=== PATIENT | male | born 1995 | race Two or more races ===

== ENCOUNTER 2018-05-23 18:17 | Emergency (ER) | payer SELFPAY ==
[2018-05-23] MEDS ORDERED: CARBAMAZEPINE 200 MG TABLET PO ONE (18:54)
[2018-05-23] MEDS ORDERED: HYDROXYZINE PAMOATE 50 MG CAPSULE PO ONE (18:54)
[2018-05-23] MEDS ORDERED: OLANZAPINE 5 MG TABLET PO ONE (18:54)
--- NOTE | 2018-05-23 18:54 | ER Document Report ---
ED Medical Screen (RME) - General Chief Complaint: Psych Problem Stated Complaint: PSYCH Time Seen by Provider: 05/23/18 18:46 Mode of Arrival: Ambulatory Information source: Patient Notes: This is a 22-year-old gentleman with a history of bipolar affective disorder and PTSD has been off his medicines and is new to the area (previously from [place]). Patient presents to the emergency room with not being able to sleep, nausea, having flashbacks. He states he took some marijuana and its made him feel more agitated. TRAVEL OUTSIDE OF THE [place] IN LAST 30 DAYS: No - Related Data Allergies/Adverse Reactions: No Known Allergies Allergy (Unverified 05/23/18 18:18) Past Medical History - Social History Chew tobacco use (# tins/day): No Frequency of alcohol use: None Drug Abuse: Marijuana Renal/ Medical History: Denies: Hx Peritoneal Dialysis Physical Exam - Vital signs Vitals: Temp Pulse Resp BP Pulse Ox 97.7 F 95 17 125/72 99 05/23/18 18:24 05/23/18 18:24 05/23/18 18:24 05/23/18 18:24 05/23/18 18:24 Course - Vital Signs Vital signs: Temp Pulse Resp BP Pulse Ox 97.7 F 95 17 125/72 99 05/23/18 18:24 05/23/18 18:24 05/23/18 18:24 05/23/18 18:24 05/23/18 18:24
[2018-05-23 19:21] LABS: ABSOLUTE EOSINOPHILS # (AUTO) 0.3 10^3/uL (0.0-0.6); ABSOLUTE LYMPHOCYTES (AUTO) 2.2 10^3/uL (0.5-4.7); ABSOLUTE MONOCYTES (AUTO) 0.8 10^3/uL (0.1-1.4); BASOPHILS % (AUTO) 0.4 % (0-2); EOSINOPHILS % (AUTO) 2.3 % (0-6); HEMATOCRIT 40.7 % (37.9-51.0); HEMOGLOBIN 13.4 g/dL (13.5-17.0); LYMPHOCYTES % (AUTO) 19.8 % (13-45); MEAN CORPUSCULAR HEMOGLOBIN 29.6 pg (27.0-33.4); MEAN CORPUSCULAR VOLUME 90 fl (80-97); MONOCYTES % (AUTO) 6.9 % (3-13); PLATELET COUNT 343 10^3/uL (150-450); RED BLOOD COUNT 4.55 10^6/uL (4.35-5.55); RED CELL DISTRIBUTION WIDTH 13.2 % (11.5-14.0); SEGMENTED NEUTROPHILS % (AUTO) 70.6 % (42-78); TOTAL CELLS COUNTED % (AUTO) 100 %; WHITE BLOOD COUNT 11.3 10^3/uL (4.0-10.5)
[2018-05-23 19:29] LABS: APPEARANCE,URINE SLIGHTLY-CLOUDY; BILIRUBIN,URINE NEGATIVE (NEGATIVE); GLUCOSE, URINE NEGATIVE (NEGATIVE); KETONES,URINE NEGATIVE (NEGATIVE); LEUKOCYTE ESTERASE,URINE NEGATIVE (NEGATIVE); NITRITE,URINE NEGATIVE (NEGATIVE); PROTEIN,URINE NEGATIVE (NEGATIVE); URINE SPECIFIC GRAVITY 1.029
[2018-05-23 19:30] LABS: COLOR,URINE YELLOW
[2018-05-23 19:44] LABS: ALANINE AMINOTRANSFERASE 43 U/L (21-72); ALBUMIN 4.8 g/dL (3.5-5.0); ALKALINE PHOSPHATASE 77 U/L (38-126); ANION GAP 10 (5-19); ASPARTATE AMINO TRANSFERASE 91 U/L (17-59); BILIRUBIN,DIRECT 0.2 mg/dL (0.0-0.4); BILIRUBIN,TOTAL 0.3 mg/dL (0.2-1.3); BLOOD UREA NITROGEN 24 mg/dL (7-20); CALCIUM 9.9 mg/dL (8.4-10.2); CARBON DIOXIDE 32 mmol/L (22-30); CHLORIDE 99 mmol/L (98-107); GLUCOSE 86 mg/dL (75-110); POTASSIUM 4.6 mmol/L (3.6-5.0); SODIUM 141.4 mmol/L (137-145); TOTAL PROTEIN 7.6 g/dL (6.3-8.2)
[2018-05-23 19:45] LABS: ACETAMINOPHEN < 10 ug/mL (10-30); ALCOHOL < 10 mg/dL (NONE DETECTED); SALICYLATE < 1.0 mg/dL (2.0-20.0)
[2018-05-23 19:45] LABS: URINE BARBITURATES SCREEN NEGATIVE; URINE BENZODIAZEPINES SCREEN NEGATIVE; URINE COCAINE SCREEN NEGATIVE; URINE MARIJUANA (THC) SCREEN UNCONFIRMED POSITIVE; URINE METHADONE SCREEN NEGATIVE; URINE PHENCYCLIDINE SCREEN NEGATIVE
--- NOTE | 2018-05-23 19:50 | ER Document Report ---
Addendum entered and electronically signed by MENDEL MTZ MD 05/24/18 09:49: Discharge - Discharge Clinical Impression: Bipolar I disorder with keila, Amphetamine abuse Condition: Stable Disposition: HOME, SELF-CARE Additional Instructions: You have been evaluated by both medical and behavioral health teams and have been deemed appropriate for discharge. You are encouraged to refrain from using amphetamines as this can increase your symptoms of bipolar. You have been provided a resource list and local providers and mobile crisis contact information. Bipolar Disorder Bipolar disorder is also called manic-depressive disorder. Depression alternates with brain hyperactivity called keila. Each phase lasts from several days to a few weeks. We don't know exactly what causes bipolar disorder, but it's treatable. During the "manic phase," you may feel elated and energetic. You may have racing thoughts, rapid speech, increased activity, and grandiose ideas. During this time, you may not realize how poor your judgement is. Inappropriate spending, drug abuse, excessive alcohol use, marriage problems, and irresponsible sexual behavior are common during the manic phase. During the "depressive phase," you might feel depressed, guilty, worthless, fatigued, and unable to concentrate. You might have thoughts of suicide. Good treatments are available for bipolar disorder. [place] is a classic drug for bipolar disorder, and is still often useful. If the manic phase is very mild, an antidepressant alone can be prescribed. If the manic phase is very severe, an antipsychotic medicine (such as Haldol) may be needed. The treatment must be matched to your symptoms, so it's important to work closely with your psychiatric care provider. Contact your physician, the hospital emergency center, crisis line, or your counsellor if you are losing control or having self-destructive thoughts. AMPHETAMINE / METHAMPHETAMINE ABUSE: Amphetamines are addicting stimulants. Amphetamines overstimulate the nervous system and give a false feeling of power and mastery. These drugs may be obtained as prescription pills for weight loss, narcolepsy, or attention-deficit disorder. More often they're bought as an illegal street drug, methamphetamine (crank, crystal, speed). Using amphetamines repeatedly can lead to serious medical problems including malnutrition, severe depression, and paranoia. It can take increasing amounts to feel good. Eventually, there will be a "burn out." When you go off amphetamines there is a period of depression that may last for weeks or even months. High doses of amphetamines can cause seizures, confusion, hallucinations, delusions, high blood pressure, muscle damage, heart damage, or sudden . Many times these deadly complications occur even with "normal" doses. Injection of amphetamines is risky for developing abscesses, endocarditis (heart infection), pneumonia, and AIDS. Withdrawal from amphetamines often causes anxiety, depression, and drug cravings. Some users become paranoid and psychotic. There may be cramps, nausea, and vomiting. Many treatment programs are available, but you must make the decision to quit. Medication can be prescribed to control the symptoms of amphetamine toxicity (beta blockers or benzodiazepines). Withdrawal symptoms may require tranquilizers. FOLLOW-UP CARE: If you experience worsening or a significant change in your symptoms, notify the physician immediately or return to the Emergency Department at any time for re- evaluation. Referrals: [facility] [Outside] - Follow up in 3-5 days [facility] [Outside] - Follow up as needed Addendum entered and electronically signed by EN SHANNON LCSWA 05/24/18 09:25: Discharge - Discharge Clinical Impression: Bipolar I disorder with keila, Amphetamine abuse Condition: Stable Disposition: HOME, SELF-CARE Additional Instructions: You have been evaluated by both medical and behavioral health teams and have been deemed appropriate for discharge. You are encouraged to refrain from using amphetamines as this can increase your symptoms of bipolar. You have been provided a resource list and local providers and mobile crisis contact information. Bipolar Disorder Bipolar disorder is also called manic-depressive disorder. Depression alternates with brain hyperactivity called keila. Each phase lasts from several days to a few weeks. We don't know exactly what causes bipolar disorder, but it's treatable. During the "manic phase," you may feel elated and energetic. You may have racing thoughts, rapid speech, increased activity, and grandiose ideas. During this time, you may not realize how poor your judgement is. Inappropriate spending, drug abuse, excessive alcohol use, marriage problems, and irresponsible sexual behavior are common during the manic phase. During the "depressive phase," you might feel depressed, guilty, worthless, fatigued, and unable to concentrate. You might have thoughts of suicide. Good treatments are available for bipolar disorder. [place] is a classic d rug for bipolar disorder, and is still often useful. If the manic phase is very mild, an antidepressant alone can be prescribed. If the manic phase is very severe, an antipsychotic medicine (such as Haldol) may be needed. The treatment must be matched to your symptoms, so it's important to work closely with your psychiatric care provider. Contact your physician, the hospital emergency center, crisis line, or your counsellor if you are losing control or having self-destructive thoughts. AMPHETAMINE / METHAMPHETAMINE ABUSE: Amphetamines are addicting stimulants. Amphetamines overstimulate the nervous system and give a false feeling of power and mastery. These drugs may be obtained as prescription pills for weight loss, narcolepsy, or attention-deficit disorder. More often they're bought as an illegal street drug, methamphetamine (crank, crystal, speed). Using amphetamines repeatedly can lead to serious medical problems including malnutrition, severe depression, and paranoia. It can take increasing amounts to feel good. Eventually, there will be a "burn out." When you go off amphetamines there is a period of depression that may last for weeks or even months. High doses of amphetamines can cause seizures, confusion, hallucinations, delusions, high blood pressure, muscle damage, heart damage, or sudden . Many times these deadly complications occur even with "normal" doses. Injection of amphetamines is risky for developing abscesses, endocarditis (heart infection), pneumonia, and AIDS. Withdrawal from amphetamines often causes anxiety, depression, and drug cravings. Some users become paranoid and psychotic. There may be cramps, nausea, and vomiting. Many treatment programs are available, but you must make the decision to quit. Medication can be prescribed to control the symptoms of amphetamine toxicity (beta blockers or benzodiazepines). Withdrawal symptoms may require tranquilizers. FOLLOW-UP CARE: If you experience worsening or a significant change in your symptoms, notify the physician immediately or return to the Emergency Department at any time for re- evaluation. Referrals: [facility] [Outside] - Follow up as needed [facility] [Outside] - Follow up in 3-5 days Original Note: ED General - General Chief Complaint: Psych Problem Stated Complaint: PSYCH Time Seen by Provider: 05/23/18 18:46 Mode of Arrival: Ambulatory TRAVEL OUTSIDE OF THE [place] IN LAST 30 DAYS: No - HPI Notes: Patient presents to the emergency department for evaluation. He states "I think I am manic." He has a history of bipolar affective disorder as well as PTSD. He is new to the area. He is been off his medications for over a month. He states he has been told by his roommates that he is having night terrors. He states he has been sleepwalking, screaming and going back to sleep. He does not have any recollection of these episodes. He denies any suicidal or homicidal ideation. He denies any known auditory hallucinations at this time. He has been psychiatrically hospitalized in the past was for suicidality. - Related Data Allergies/Adverse Reactions: No Known Allergies Allergy (Unverified 05/23/18 18:18) Past Medical History - General Information source: Patient - Social History Smoking Status: Current Every Day Smoker Chew tobacco use (# tins/day): No Frequency of alcohol use: None Drug Abuse: Marijuana Family History: Reviewed & Not Pertinent Patient has suicidal ideation: No Patient has homicidal ideation: No Renal/ Medical History: Denies: Hx Peritoneal Dialysis Review of Systems - Review of Systems Constitutional: No symptoms reported EENT: No symptoms reported Cardiovascular: No symptoms reported Respiratory: No symptoms reported Gastrointestinal: No symptoms reported Musculoskeletal: No symptoms reported Skin: No symptoms reported Hematologic/Lymphatic: No symptoms reported Neurological/Psychological: See HPI Physical Exam - Vital signs Vitals: Temp Pulse Resp BP Pulse Ox 97.7 F 95 17 125/72 99 05/23/18 18:24 05/23/18 18:24 05/23/18 18:24 05/23/18 18:24 05/23/18 18:24 Interpretation: Normal - Notes Notes: Vital signs reviewed, please refer to chart. Patient is normocephalic, atraumatic. Pupils equal round, reactive to light. Neck is supple without meningismus. Heart is regular rate and rhythm. Lungs are clear to auscultation bilaterally. Abdomen is soft, nontender, normoactive bowel sounds throughout. Extremities without cyanosis, clubbing, edema. Peripheral pulses are equal. Skin is warm and dry. Patient is awake, alert, neurological exam is nonfocal. Patient is agitated, fidgety. He is intermittently scratching at his extremities, avoids eye contact. Mild stream of consciousness thought process. Pressured speech. Course - Re-evaluation Re-evalutation: 05/23/18 19:50 Patient presents to the emergency department for evaluation. Medications as ordered through triage. Laboratory investigations reviewed and found to be largely unremarkable. Patient does agree that psychiatric evaluation and treatment would be most appropriate at this time. He is medically cleared and will be seen by psych tomorrow. 05/23/18 21:37 Patient remains mildly agitated. Ativan ordered. - Vital Signs Vital signs: Temp Pulse Resp BP Pulse Ox 97.7 F 95 17 125/72 99 05/23/18 18:24 05/23/18 18:24 05/23/18 18:24 05/23/18 18:24 05/23/18 18:24 - Laboratory Result Diagrams: 05/23/18 19:02 05/23/18 19:02 Laboratory results interpreted by me: 05/23/18 05/23/18 05/23/18 18:54 19:02 19:02 WBC 11.3 H Hgb 13.4 L Carbon Dioxide 32 H BUN 24 H AST 91 H Urine Urobilinogen 2.0 H Urine Ascorbic Acid 40 H Salicylates < 1.0 L Acetaminophen < 10 L Discharge - Discharge Clinical Impression: Bipolar I disorder with keila Disposition: PSYCH HOSP/UNIT
--- NOTE | 2018-05-23 21:20 | EKG REPORT ---
SEVERITY:- NORMAL ECG - SINUS RHYTHM ST ELEV, PROBABLE NORMAL EARLY REPOL PATTERN : Confirmed by: Samantha Rios MD 23-May-2018 21:20:04
[2018-05-23] MEDS ORDERED: LORAZEPAM INJ 2 MG/1 ML VIAL IM ONE (21:36)
--- NOTE | 2018-05-24 09:31 | ER Document Report ---
Doctor's Note Notes: 05/24/18 09:31 22-year-old male with past medical history of bipolar disorder who presents thinking that he has possibly "manic". He denies any auditory or visual hallucinations, suicidal or homicidal ideations. He has been out of his medications for 1 month. Patient supposedly has been "sleepwalking" according to his roommates at home. Patient has no recollection of these events. Labs and vital signs as recorded. 05/24/18 09:47 Psychology/psychiatry team is seen and evaluated the patient. They do not believe that the patient meets IVC criteria at this time. They were hesitant to prescribe the patient medications given that they have had no contact with the patient previously and he has amphetamines in his urine analysis. Patient denies taking any medications other than smoking marijuana. Patient denies any auditory or visual hallucinations. He denies any suicidal homicidal ideations. They would like to start the patient initially by providing outpatient resources that the patient will access for further evaluation. Patient is comfortable with this plan.
[2018-05-24 10:16] VITALS: BP 111/62
--- NOTE | 2018-05-24 10:22 | PSYCHOLOGICAL NOTE ---
Psych Note - Psych Note Date seen by psych provider: 05/24/18 Time seen by psych provider: 07:30 Psych Note: Reason for Consult: manic This is a 22-year-old gentleman with a history of bipolar 1 disorder and PTSD has been off his medicines and is new to the area (previously from [place]). Patient presents to the emergency room with not being able to sleep, nausea, having flashbacks. He states he took some marijuana and its made him feel more agitated. Patient discloses he used to be prescribed Tegretol, Zyprexa and vitamin B complex. He confirms that he is not with an outpatient mental provider currently. Patient reports he was unaware he had any amph etamines in his system. Clinician conducted psychoeducation on probability of increased symptoms of "keila" and/or agitation because of the amphetamine. Patient is alert and orientated to person, place, time and circumstance. Mood is euthymic with congruent affect. Patient denies suicidal homicidal ideations. Delusions are absent behaviors congruent with an intact reality based presentation i.e. organized linear thought process. Eye contact is fair. Conversational speech is within normal rate, tone and prosody. Clinician notes notes psychomotor agitation is noted currently but was observed by [facility] staff last night. Attention and concentration were good. Insight, judgment, impulse control is fair. No medication recommendations at this time Bipolar 1 disorder per history provided by patient PTSD per history provided by patient Impression\\plan: Patient is cleared from acute psychiatric services. Patient does not meet IVC criteria per MD GS 122C. Patient reports being off me dications for approximately 1 month and is not been able to establish an outpatient mental provider. Patient did just recently moved from [place] to the local area. Patient reports that he smokes marijuana in the hopes that he would be calmed however reports increased agitation. [facility] staff observed manic-like behavior upon his arrival. Patient is no longer demonstrating any behaviors indicating he is manic or under the influence. Patient is noted to be positive for amphetamines and currently patient denies having any prescriptions for amphetamines. His problems with patient's marijuana was laced which increased his agitation and contributed to his presentation upon arrival. Patient is highly encouraged to abstain from amphetamines as this can increase symptoms of his mental health diagnoses. Patient was provided local resource list of area providers including mobile crisis contact information. Dr. Sharpe was consulted and the care management this patient; attending physicians in agreement with recommendations and disposition.
== END 2018-05-24 10:28 | disposition home or self-care (01) ==
LOC: ER 18:17
DX: F31.9 Bipolar disorder, unspecified (principal); T42.1X6A Underdosing of iminostilbenes, initial encounter; T43.596A Underdosing of other antipsychotics and neuroleptics, initial encounter; Z91.128 Patient's intentional underdosing of medication regimen for other reason; F15.10 Other stimulant abuse, uncomplicated; F12.10 Cannabis abuse, uncomplicated; F17.200 Nicotine dependence, unspecified, uncomplicated; F43.10 Post-traumatic stress disorder, unspecified
CPT/HCPCS: 93005; 99285; 96372; 36415; 80307 ×4; 85025; 80053; 81001; 93010; J2060

== ENCOUNTER 2018-05-27 16:35 | Emergency (ER) | payer SELFPAY ==
--- NOTE | 2018-05-27 17:16 | ER Document Report ---
ED Medical Screen (RME) - General Chief Complaint: Suicidal Ideation Stated Complaint: SUCIDAL IDEATION Time Seen by Provider: 05/27/18 17:08 Mode of Arrival: Ambulatory Information source: Patient Notes: Patient is a 22-year-old male who presents to the emergency department with complaints of suicidal ideation. Patient reports he was dropped off by mobile crisis. He states over the last 2-3 days he has been having thoughts of self- harm. States he wants to jump in front of a vehicle. Patient reports he is homeless and has no resources. Patient states he is supposed to be taking mult iple psychiatric medications, states he has been off of these medications for about 2 months. Denies any homicidal ideation. Exam: Flat affect, answering questions appropriately, cooperative. I have greeted and performed a rapid initial assessment of this patient. A comprehensive ED assessment and evaluation of the patient, analysis of test results and completion of the medical decision making process will be conducted by additional ED providers. Dictation of this chart was performed using voice recognition software; therefore, there may be some unintended grammatical errors. TRAVEL OUTSIDE OF THE [place] IN LAST 30 DAYS: No - Related Data Allergies/Adverse Reactions: No Known Allergies Allergy (Unverified 05/23/18 18:18) Past Medical History - Social History Drug Abuse: Marijuana, Methamphetamine, Other Renal/ Medical History: Denies: Hx Peritoneal Dialysis Physical Exam - Vital signs Vitals: Temp Pulse Resp BP Pulse Ox 98.8 F 87 17 129/60 H 98 05/27/18 16:45 05/27/18 16:45 05/27/18 16:45 05/27/18 16:45 05/27/18 16:45 Course - Vital Signs Vital signs: Temp Pulse Resp BP Pulse Ox 98.8 F 87 17 129/60 H 98 05/27/18 16:45 05/27/18 16:45 05/27/18 16:45 05/27/18 16:45 05/27/18 16:45
[2018-05-27 17:39] LABS: ABSOLUTE BASOPHILS # (AUTO) 0.1 10^3/uL (0.0-0.2); ABSOLUTE EOSINOPHILS # (AUTO) 0.2 10^3/uL (0.0-0.6); ABSOLUTE LYMPHOCYTES (AUTO) 1.8 10^3/uL (0.5-4.7); ABSOLUTE MONOCYTES (AUTO) 0.5 10^3/uL (0.1-1.4); ABSOLUTE NEUT (AUTO) 6.2 10^3/uL (1.7-8.2); EOSINOPHILS % (AUTO) 2.3 % (0-6); HEMATOCRIT 38.9 % (37.9-51.0); MEAN CORPUSCULAR HGB CONC 33.3 g/dL (32.0-36.0); MEAN CORPUSCULAR VOLUME 90 fl (80-97); MONOCYTES % (AUTO) 6.1 % (3-13); PLATELET COUNT 326 10^3/uL (150-450); RED BLOOD COUNT 4.32 10^6/uL (4.35-5.55); RED CELL DISTRIBUTION WIDTH 13.8 % (11.5-14.0); SEGMENTED NEUTROPHILS % (AUTO) 70.6 % (42-78); TOTAL CELLS COUNTED % (AUTO) 100 %; WHITE BLOOD COUNT 8.8 10^3/uL (4.0-10.5)
[2018-05-27 17:50] LABS: APPEARANCE,URINE SLIGHTLY-CLOUDY; BILIRUBIN,URINE NEGATIVE (NEGATIVE); CALCIUM OXALATE CRYSTALS,URINE FEW /HPF; COLOR,URINE YELLOW; GLUCOSE, URINE NEGATIVE (NEGATIVE); KETONES,URINE NEGATIVE (NEGATIVE); LEUKOCYTE ESTERASE,URINE NEGATIVE (NEGATIVE); NITRITE,URINE NEGATIVE (NEGATIVE); PROTEIN,URINE NEGATIVE (NEGATIVE); URINE SPECIFIC GRAVITY 1.028
[2018-05-27 18:00] LABS: URINE AMPHETAMINES SCREEN NEGATIVE; URINE BARBITURATES SCREEN NEGATIVE; URINE BENZODIAZEPINES SCREEN NEGATIVE; URINE COCAINE SCREEN NEGATIVE; URINE MARIJUANA (THC) SCREEN UNCONFIRMED POSITIVE; URINE METHADONE SCREEN NEGATIVE; URINE PHENCYCLIDINE SCREEN NEGATIVE
[2018-05-27 18:04] LABS: ALANINE AMINOTRANSFERASE 35 U/L (21-72); ALBUMIN 4.1 g/dL (3.5-5.0); ALKALINE PHOSPHATASE 70 U/L (38-126); ANION GAP 7 (5-19); ASPARTATE AMINO TRANSFERASE 39 U/L (17-59); BILIRUBIN,DIRECT 0.1 mg/dL (0.0-0.4); BILIRUBIN,TOTAL 0.2 mg/dL (0.2-1.3); BLOOD UREA NITROGEN 19 mg/dL (7-20); CALCIUM 9.1 mg/dL (8.4-10.2); CARBON DIOXIDE 28 mmol/L (22-30); CHLORIDE 107 mmol/L (98-107); GLUCOSE 95 mg/dL (75-110); POTASSIUM 4.7 mmol/L (3.6-5.0); SODIUM 141.6 mmol/L (137-145); TOTAL PROTEIN 6.6 g/dL (6.3-8.2)
[2018-05-27] MEDS ORDERED: CARBAMAZEPINE 200 MG TABLET PO ONE (18:05)
[2018-05-27 18:07] LABS: ACETAMINOPHEN < 10 ug/mL (10-30); ALCOHOL < 10 mg/dL (NONE DETECTED); SALICYLATE < 1.0 mg/dL (2.0-20.0)
[2018-05-27] MEDS ORDERED: OLANZAPINE 5 MG TABLET PO ONE (18:08)
[2018-05-27] MEDS ORDERED: HYDROXYZINE PAMOATE 50 MG CAPSULE PO PRN (18:08)
--- NOTE | 2018-05-27 18:16 | ER Document Report ---
ED Psych Disorder / Suicide <SHANNONEN - Last Filed: 05/28/18 17:16> - General Mode of Arrival: Ambulatory TRAVEL OUTSIDE OF THE [place] IN LAST 30 DAYS: No <SHERIF ARANDA - Last Filed: 05/28/18 18:07> - General Chief Complaint: Suicidal Ideation Stated Complaint: SUCIDAL IDEATION Time Seen by Provider: 05/27/18 17:08 Primary Care Provider: [facility] [Outside] - Follow up as needed Notes: Patient is here because he says he feels suicidal for the last 2-3 days. 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 He thinks that people are stealing from him. He has had this feeling in the past and has attempted suicide about 3 times over the last couple of years. All of these have been with overdoses of pills. Has had no nausea or vomiting, but some diarrhea. Generalized body aching, as well. Some headache. No fever. Patient has previously been under the care of a mental health professional and diagnosed with bipolar disorder and PTSD and has been on Tegretol 200 mg 3 times a day, Zyprexa 5-10 at bedtime, and Vistaril 50 mg 4 times a day as needed in the past, but is out of all medicines at this time. (SHERIF ARANDA) - Related Data Allergies/Adverse Reactions: No Known Allergies Allergy (Unverified 05/23/18 18:18) Past Medical History - General Information source: Patient - Social History Smoking Status: Current Every Day Smoker Drug Abuse: Marijuana, Methamphetamine, Other Family History: Reviewed & Not Pertinent Patient has suicidal ideation: No Patient has homicidal ideation: No <SHERIF ARANDA - Last Filed: 05/28/18 18:07> Review of Systems <SHERIF ARANDA - Last Filed: 05/28/18 18:07> - Review of Systems Notes: REVIEW OF SYSTEMS: CONSTITUTIONAL : Denies fever. EENT: Denies eye, ear, nose or mouth or throat pain or other symptoms. CARDIOVASCULAR: Denies chest pain. RESPIRATORY: Denies cough, chest congestion, or shortness of breath. GASTROINTESTINAL: Denies abdominal pain or nausea, vomiting, but some diarrhea. GENITOURINARY: Denies difficulty or painful urinating, urinary frequency, blood in urine. MUSCULOSKELETAL: Denies back or neck pain. Denies joint pain or swelling. SKIN: Denies rash or skin lesions. NEUROLOGICAL: Denies LOC or altered mental status. Denies sensory loss or motor deficits. ALL OTHER SYSTEMS REVIEWED AND NEGATIVE. (SHERIF ARANDA) Physical Exam - Vital signs Interpretation: Normal <SHERFI ARANDA - Last Filed: 05/28/18 18:07> - Vital signs Vitals: Temp Pulse Resp BP Pulse Ox 98.8 F 87 17 129/60 H 98 05/27/18 16:45 05/27/18 16:45 05/27/18 16:45 05/27/18 16:45 05/27/18 16:45 Notes: PHYSICAL EXAMINATION: GENERAL: Well-appearing, in no acute distress. Pleasant and conversant. HEAD: Atraumatic, normocephalic. EYES: Pupils equal round and reactive to light, extraocular movements intact. ENT: oropharynx clear without exudates. Moist mucous membranes. NECK: Normal range of motion, supple. LUNGS: Breath sounds clear and equal bilaterally. HEART: Regular rate and rhythm without murmurs. ABDOMEN: Soft, nontender. No guarding or rebound. No masses. BACK: No tenderness throughout entire back. EXTREMITIES: Normal range of motion without pain. NEUROLOGICAL: Normal speech, normal gait. Normal sensory, motor, and reflex exams. Awake, alert, and oriented x3. PSYCH: Normal mood, normal affect. SKIN: Warm, dry, no rashes. (SHERIF ARANDA) Course - Laboratory Result Diagrams: 05/27/18 17:13 05/27/18 17:13 <EN SHANNON - Last Filed: 05/28/18 17:16> - Laboratory Result Diagrams: 05/27/18 17:13 05/27/18 17:13 <SHERIF ARANDA - Last Filed: 05/28/18 18:07> - Re-evaluation Re-evalutation: 05/28/18 10:20 Rounds: Patient interviewed. Says he slept well. Still feels depressed and suicidal. Labs were all essentially normal except for being positive for marijuana on his drug screen. His vital signs are all normal. Mental health is to assess patient and make recommendations. Patient appears to be medically stable for transfer or discharge. Florencia Aranda MD (SHERIF ARANDA) - Vital Signs Vital signs: Temp Pulse Resp BP Pulse Ox 98.4 F 83 17 124/58 L 100 05/28/18 17:42 05/28/18 17:42 05/27/18 16:45 05/28/18 17:42 05/28/18 17:42 - Laboratory Laboratory results interpreted by me: 05/27/18 05/27/18 05/27/18 17:13 17:13 17:13 RBC 4.32 L Hgb 13.0 L Urine Urobilinogen 4.0 H Salicylates < 1.0 L Acetaminophen < 10 L Discharge <EN SHANNON - Last Filed: 05/28/18 17:16> <SHERIF ARANDA - Last Filed: 05/28/18 18:07> - Discharge Clinical Impression: Suicidal ideation, Bipolar 1 disorder, Homeless Clinical Impression: (Ruled Out): Depression, Bipolar I disorder with keila Condition: Stable Disposition: HOME, SELF-CARE Additional Instructions: You have been evaluated both medical and behavioral health teams have been deemed appropriate for discharge. You have been provided local resource list of both mental health, substance abuse, and economic resources. You are enc ouraged to follow-up with outpatient mental health services for both medication management and therapeutic services. [facility] has made contact with you to assist with additional resource assistance. You are recommended to follow-up with integrated family services, mobile crisis, for additional assistance with substance abuse detox. You can call at the [facility] (you have already conducted the phone interview with them) daily for bed availability at [phone]. DEPRESSION: Your evaluation reveals that you have mental depression. While symptoms may be vague, they often include disturbance of sleep, fatigue, loss of appetite, and general loss of interest in life. While depression may be a side effect of drugs, or a reaction to a major change in your life, many cases have no known cause. If depression is acute, and related to a major loss in your life, you can expect it to clear completely with time. If you have been depressed a long time, are prone to repeated bouts of depression or low mood, or have been thinking of suicide, get help. Depression can be treated with anti-depressant medication and counselling. Long-term depression will often take a few weeks to clear, even with appropriate medication. Follow-up care is important. SUICIDAL IDEATION: Suicidal ideation is a common medical term for thoughts about suicide, which may be as detailed as a formulated plan, without the suicidal act itself. Although most people who undergo suicidal ideation do not commit suicide, some go on to make suicide attempts. The range of suicidal ideation varies greatly from fleeting to detailed planning, role playing, and unsuccessful attempts. While thoughts about suicide are common, most people do not carry out serious actions to commit suicide. Based upon your evaluation and discussion with you, we do not believe you are currently at risk to act upon your thoughts of suicide. You have agreed to return to the Emergency Department, at any time, if you feel inclined to act upon your suicidal thoughts. FOLLOW-UP CARE: If you experience worsening or a significant change in your symptoms, notify the physician immediately or return to the Emergency Department at any time for re- evaluation. Referrals: [facility] [Outside] - Follow up as needed
--- NOTE | 2018-05-28 07:53 | EKG REPORT ---
SEVERITY:- NORMAL ECG - SINUS RHYTHM : Confirmed by: Alvino Brower MD 28-May-2018 07:53:01
--- NOTE | 2018-05-28 17:16 | PSYCHOLOGICAL NOTE ---
Psych Note - Psych Note Date seen by psych provider: 05/28/18 Time seen by psych provider: 08:00 Psych Note: Reason for Consult: suicidal ideation Pt presents to the ED with complaints of SI. Pt has a history of bipolar and not on medication. [facility] was called to the pt's home and stated SI. Pt claims he does have a plan and had two attempts in 2018. Pt is cooperative at this time. Pt is AOx4 and able to speak in full sentences. Patient discloses that he had thoughts of running into traffic. He denies taking any action stating that "I just called mobile crisis." Patient reports there was nothing emotionally that stopped him from harming himself he just knew to call mobile crisis. Patient reports that he has been homeless on and off for many years and has not lived in appearance home since he was 18 years old. While clinician was discussing therapeutic treatment options patient became very agitated and stating "I need to go inpatient to figure it out... I need to figure out what the plan is... Every other time I have called they just take me in the hospital and then set up a place for me to live after I get discharged." Patient confirms he is not followed up with any mental health recommendations in the past including recommendations received on 05/23/2018. He reports he does not have any money to fill any prescriptions. And is now currently homeless. Patient is alert and orientated to person, place, time and circumstance. Mood is first irritable with congruent affect however evolved to euthymic with congruent affect. Patient endorses passive suicidal ideation i.e. no plans means or intent. Patient denies homicidal ideations. Delusions are absent behaviors congruent with an intact reality based presentation i.e. organized and linear thought process. Eye contact is well-maintained. Conversational speech is within normal rate, tone and prosody. Intellectual abilities appear to be within the average range. Attention and concentration are fair. Insight, judgment, impulse control are fair. Thought content focused on obtaining secondary goal housing. Clinician again spoke with patient to discuss therapeutic treatment options. Patient is much calmer and agrees to continue working with outpatient mental a lt services to set up assistance. Clinician discussed option of free services from some local providers. Clinician discussed inpatient psychiatric treatment cannot assist with socioeconomic struggles. Patient was provided street sheet and discussed possible options for employment. No medication recommendations at this time Homeless Bipolar 1 disorder per history provided by patient PTSD per history provided by patient Impression\\plan: Patient is cleared from acute psychiatric services. Patient reports passive suicidal ideation i.e. no plans means or intent. He reports that he was thought of running into traffic however denies any actions reporting that he just did not do it and stopped and called mobile crisis instead. Patient demonstrates strong impulse control but insight and judgment and reaching out for assistance. Patient is currently homeless and is frustrated on the living situation. He reports needing to go inpatient because "they do every thing and plan everything out for me." He reports that when he gets discharged they have provider and housing set up. He confirms he has been homeless on and off for years and is not lived with his parents since he was 18 years old. He does not have any contact with any family members. Patient reports substance abuse including methamphetamine. Patient conducted phone interview with the [facility]; there is currently no beds available. Patient reports he is new to the area so has limited knowledge of local resources. Community [facility] referral was submitted and interviewed patient today to assist with additional resources. Clinician provided a "street sheet "of local resources including halfway information, soup [facility], and food [facility]. At this time inpatient psychiatric treatment would not be appropriate as the patient is attempting to use inpatient treatment as a resource for meeting housing needs. Patient needs to set up an outpatient provider to obtain medications and therapeutic services; patient was provided resource information on local providers including mobile crisis contact information. Dr. Sharpe was consulted and the care management of this patient; attending physicians in agreement with recommendations and disposition.
[2018-05-28 21:50] VITALS: BP 120/66
== END 2018-05-28 21:15 | disposition home or self-care (01) ==
LOC: ER 16:35
DX: R45.851 Suicidal ideations (principal); M79.10 Myalgia, unspecified site; R51 Headache; F17.200 Nicotine dependence, unspecified, uncomplicated; Z59.0 Homelessness; F31.9 Bipolar disorder, unspecified
CPT/HCPCS: 36415; 80053; 80307; 81001; 85025; 93005; 93010; 99285